=== PATIENT | female | born 1965 | race Caucasian/White ===

== ENCOUNTER 2019-10-16 05:48 | Emergency (ER) | payer MEDICAID ==
--- NOTE | 2019-10-16 07:04 | EDM.PDOC ---
ED HPI GENERAL MEDICAL PROBLEM - General Time Seen by Provider: 10/16/19 05:48 - History of Present Illness INITIAL COMMENTS - FREE TEXT/NARRATIVE: Patient unresponsive, cpap in place RR 40-50, unk how long she has been unresponsive. - Related Data Allergies Allergy/AdvReac Type Severity Reaction Status Date / Time fluoxetine HCl [From Prozac] Allergy Intermediate Arrhythmias Verified 09/11/17 19:05 sertraline HCl [From Zoloft] Allergy Intermediate Arrhythmias Verified 09/11/17 19:05 trazodone Allergy Intermediate Hallucinati Verified 09/11/17 19:05 ons amitriptyline Allergy Mild Cannot Verified 09/11/17 19:05 Remember amoxicillin [Amoxicillin] Allergy Mild Rash Verified 09/11/17 19:05 azithromycin [From Zithromax] Allergy Mild Stomach Verified 09/11/17 19:05 Ache citalopram Allergy Mild Muscle Verified 09/11/17 19:05 Aches escitalopram oxalate Allergy Mild Cannot Verified 09/11/17 19:05 [From Lexapro] Remember mirtazapine Allergy Mild Muscle Verified 09/11/17 19:05 Aches zolpidem Allergy Mild Weakness Verified 09/11/17 19:05 ragweed pollen Allergy Other Verified 09/11/17 20:01 Home Meds: Home Meds Albuterol [Proair HFA] 2 puff INH Q4HR PRN 07/23/15 [History] Albuterol [Proventil Neb Soln] 1 each INH QID PRN 07/23/15 [History] Albuterol/Ipratropium [DuoNeb 3.0-0.5 MG/3 ML] 3 ml NEB BID 07/23/15 [History] Aspirin 1 tab PO DAILY 07/23/15 [History] Benzonatate [Tessalon Perle] 1 cap PO BEDTIME PRN 07/23/15 [History] ClonazePAM [KlonoPIN] 2 tab PO BEDTIME 07/23/15 [History] Estradiol [Pretty] 1 patch TOP Q3D 07/23/15 [History] Montelukast [Singulair] 1 tab PO BEDTIME 07/23/15 [History] Pantoprazole Sodium [Protonix] 20 mg PO DAILY 07/23/15 [History] Topiramate [Topamax] 25 mg PO DAILY 09/11/15 [History] busPIRone [Buspar] 1 - 4 tab PO ASDIRECTED 07/23/15 [History] Fluticasone Propionate [Flovent HFA 220 mcg] 2 puff IH BID 09/07/17 [History] Past Medical History Other Cardiovascular History: TACHYCARDIA WITH EXERTION Respiratory History: Reports: COPD, Pneumothorax Other Respiratory History: Discharged from [facility] 09/10/17. Other Genitourinary History: prolapse bladder, abnormal pap smears, Psychiatric History: Reports: Anxiety Other Dermatologic History: rosacea - Past Surgical History Other Female Surgeries/Procedures: bladder repair Other Oncologic Surgeries/Procedures: hysterectomy total ED ROS GENERAL - Review of Systems Review Of Systems: Unable To Obtain Reason Not Obtained: unresponsive ED EXAM, GENERAL - Physical Exam Exam: See Below Free Text/Narrative:: Pt presents unresponsive, RR 40-50 SPO2 at 90% on cpap, per ems found with rm spo2 in the 60-70, pt has been unresponsive for them. Head: no trauma, bruising noted, Eyes L: 8mm sluggish, R 6 mm reactive, ears: no drainage discharge, no battles signs. chest LS diminished. skin warm dry pale , heart, rappid S1, S2, ekg ST w/o ectopy noted. PT RSI / intubated, 7.0 ett 24 at the lip, x ray noted right main stem intubation, tube pulled to 22cm at the lip, equal breath sounds EtCo2 35-45, Spo2 96 100% fio2, Tv 300, RR 12 bpm, Head ct, no midline shift, no mass noted awaiting ct report, BP 60/30 levophed titrate to 90 systolic started at 2 mcg/min at time of transport systolic 90's systolic Discussed with Dr. Perez [facility] will transfer to their Er for further evaluation and treatment as needed, Labs pending at time of transfer. Pt sent [facility] ground unit Exam Limited By: Other (unresponsive) General Appearance: Other (unresponsive ) Course - Orders/Labs/Meds Orders: Active Orders 24 hr Category Date Time Status Chest 1V Frontal [CR] Stat Exams 10/16/19 06:23 Ordered Head wo Cont [CT] Stat Exams 10/16/19 06:23 Ordered BLOOD GAS ARTERIAL [BG] Stat Lab 10/16/19 06:24 Ordered CBC WITH AUTO DIFF [HEME] Stat Lab 10/16/19 06:23 Ordered COMPREHENSIVE METABOLIC PN,CMP [CHEM] Stat Lab 10/16/19 06:24 Ordered CULTURE BLOOD [BC] Stat Lab 10/16/19 06:24 Ordered CULTURE BLOOD [BC] Stat Lab 10/16/19 06:24 Ordered INR,PT,PROTHROMBIN TIME [COAG] Stat Lab 10/16/19 06:24 Ordered LACTIC ACID [CHEM] Stat Lab 10/16/19 06:48 Ordered TROPONIN I [CHEM] Stat Lab 10/16/19 06:24 Ordered UA RFX ROEL AND CULT IF INDIC [URIN] Stat Lab 10/16/19 06:47 Ordered URINE DRUG SCREEN,POC [POC] Stat Lab 10/16/19 06:47 Ordered Blood Culture x2 Reflex Set [OM.PC] Stat Oth 10/16/19 06:24 Ordered Departure - Departure Time of Disposition: 07:12 Disposition: DC/Tfer to Acute Hospital 02 Condition: Critical Clinical Impression: Respiratory failure - Discharge Information Forms: Interfacility Transfer EMTALA - My Orders Last 24 Hours: My Active Orders 10/16/19 06:23 Chest 1V Frontal [CR] Stat Head wo Cont [CT] Stat CBC WITH AUTO DIFF [HEME] Stat 10/16/19 06:24 BLOOD GAS ARTERIAL [BG] Stat COMPREHENSIVE METABOLIC PN,CMP [CHEM] Stat CULTURE BLOOD [BC] Stat CULTURE BLOOD [BC] Stat INR,PT,PROTHROMBIN TIME [COAG] Stat TROPONIN I [CHEM] Stat Blood Culture x2 Reflex Set [OM.PC] Stat 10/16/19 06:47 UA RFX ROEL AND CULT IF INDIC [URIN] Stat URINE DRUG SCREEN,POC [POC] Stat 10/16/19 06:48 LACTIC ACID [CHEM] Stat - Assessment/Plan Last 24 Hours: My Active Orders 10/16/19 06:23 Chest 1V Frontal [CR] Stat Head wo Cont [CT] Stat CBC WITH AUTO DIFF [HEME] Stat 10/16/19 06:24 BLOOD GAS ARTERIAL [BG] Stat COMPREHENSIVE METABOLIC PN,CMP [CHEM] Stat CULTURE BLOOD [BC] Stat CULTURE BLOOD [BC] Stat INR,PT,PROTHROMBIN TIME [COAG] Stat TROPONIN I [CHEM] Stat Blood Culture x2 Reflex Set [OM.PC] Stat 10/16/19 06:47 UA RFX ROEL AND CULT IF INDIC [URIN] Stat URINE DRUG SCREEN,POC [POC] Stat 10/16/19 06:48 LACTIC ACID [CHEM] Stat
[2019-10-16 07:17] LABS: BUPRENORPHINE,URINE NEGATIVE (NEGATIVE); MARIJUANA,URINE NEGATIVE (NEGATIVE); METHYLENEDIOXYMETHAMP,UR NEGATIVE (NEGATIVE); PHENCYCLIDINE,URINE NEGATIVE (NEGATIVE)
--- NOTE | 2019-10-16 07:46 | CR ---
[id number] RAD/RAD Chest PA or AP 1V EXAM: SINGLE VIEW CHEST. INDICATION: PLACEMENT OF AN ET TUBE COMPARISON: CORRELATION IS MADE WITH THE EXAM OF SEPTEMBER 11, 2017 FINDINGS: The ET tube appears in good position There is significant emphysema The cardiomediastinal contour is stable The patient is rotated to the right IMPRESSION: ET TUBE APPEARING TO BE IN GOOD POSITION Maurice Goodson MD 10/16/19 0745 Thank you for allowing us to participate in the care of your patient.
--- NOTE | 2019-10-16 07:47 | CT ---
[id number] CT/CT Head WO IV EXAM: CT Head WO IV CLINICAL DATA: RESPIRATORY ARREST COMPARISON: NO PREVIOUS SIMILAR EXAM IS AVAILABLE FOR COMPARISON. FINDINGS: The endotracheal tube is seen There is no intracranial hemorrhage There is no mass or mass effect There are no extra-axial fluid collections There is no hydrocephalus There is question of early ischemia in the left occipital region Follow-up is suggested There is also question of abnormal hypodensity in the brainstem IMPRESSION: Question of early ischemic changes No mass or mass effect No hemorrhage Follow up suggested Maurice Goodson MD 10/16/19 0746 Thank you for allowing us to participate in the care of your patient.
[2019-10-16 08:08] LABS: CHLORIDE,CL 101 mmol/L (98-107); SODIUM,NA 141 mmol/L (136-145)
[2019-10-16 08:09] LABS: ANION GAP 15.8 mmol/L (10-20)
== END 2019-10-16 07:12 | disposition short-term general hospital (02) ==
LOC: VM.ED 05:48
DX: J96.90 Respiratory failure, unspecified, unspecified whether with hypoxia or hypercapnia (principal); J44.9 Chronic obstructive pulmonary disease, unspecified; F41.9 Anxiety disorder, unspecified; Z88.8 Allergy status to other drugs, medicaments and biological substances; Z88.5 Allergy status to narcotic agent; Z88.1 Allergy status to other antibiotic agents; Z91.048 Other nonmedicinal substance allergy status; Z79.82 Long term (current) use of aspirin; Z79.899 Other long term (current) drug therapy
CPT/HCPCS: 31500; 36415; 36600; 70450; 71045; 80053; 80305-QW; 81001; 82803; 83605; 84484; 85025; 85610; 87040; 93005; 96374; 99284-GF; 99291-25